=== PATIENT | male | born 1990 | race Hispanic/Latino ===

== ENCOUNTER 2018-04-28 22:30 | Emergency (ER) | payer SELFPAY ==
[2018-04-28] MEDS ORDERED: IPRATROPIUM BROM 0.5MG/2.5ML ONE (23:04)
[2018-04-28] MEDS ORDERED: LEVALBUTEROL 1.25 MG/3 ML NEB ONE (23:04)
[2018-04-28] MEDS ORDERED: ACETAMINOPHEN 500 MG TAB ONE (23:05)
[2018-04-28] MEDS ORDERED: NA CHLORIDE 0.9% 1,000 ML ONE (23:05)
[2018-04-28] MEDS ORDERED: AZITHROMYCIN 500 MG/250 ML BAG ONE (23:06)
[2018-04-28] MEDS ORDERED: CEFTRIAXONE/SWI 1gm 1 GM/10 ML SYR ONE (23:06)
[2018-04-29 00:04] LABS: Absolute Lymphocytes (CBC) 1.6 K/uL (0.7-4.9); Absolute Monocytes 0.8 K/uL (0.1-1.3); Absolute Neutrophil 8.7 K/uL (1.8-8.0); Basophils % 0.3 % (0-1.3); Eosinophils % 0.6 % (0-4.4); Hematocrit 45.6 % (39.6-49.0); MCH 29.9 pg (27.0-35.0); MCV 86.2 fL (80-100); MPV 7.9 fL (7.6-11.3); Monocytes % 6.8 % (3.3-12.3); RBC Red Blood Cell Count 5.29 M/uL (4.33-5.43)
[2018-04-29] MEDS ORDERED: IBUPROFEN 400 MG TAB ONE (00:09)
[2018-04-29 00:24] LABS: ALT/SGPT 81 U/L (12-78); AST/SGOT 32 U/L (15-37); Albumin 3.7 g/dL (3.4-5.0); Alkaline Phosphatase 113 U/L (45-117); BUN Blood Urea Nitrogen 13 mg/dL (7-18); Bicarbonate 25 mmol/L (21-32); Bilirubin Direct 0.2 mg/dL (0-0.2); Bilirubin Total 0.6 mg/dL (0.2-1.0); Glucose Level 124 mg/dL (74-106); Magnesium 1.7 mg/dL (1.8-2.4); NT PRO-BNP 6 pg/mL (<125); Potassium 3.8 mmol/L (3.5-5.1); Sodium Level 138 mmol/L (136-145); Troponin (Emerg Dept Use Only) < 0.02 ng/mL (0.0-0.045)
--- NOTE | 2018-04-29 00:38 | ER ---
Nurse's Notes [facility] Name: Connor Silveira Age: 27 yrs Sex: Male : 1990 Arrival Date: 04/28/2018 Time: 22:35 Bed 27 Private MD: Diagnosis: Fever, unspecified;Acute upper respiratory infection, unspecified;Cough;Pneumonia due to other specified bacteria Presentation: 04/28 22:35 Presenting complaint: Patient states: that since yesterday he has been having cough, fc congestion with white sputum, fever and headache. Denies any nausea, vomiting, ear pain or sore throat. Transition of care: patient was not received from another setting of care. Onset of symptoms was April 27, 2018. Risk Assessment: Do you want to hurt yourself or someone else? Patient reports no desire to harm self or others. Initial Sepsis Screen: Does the patient meet any 2 criteria? RR > 20 per min. HR > 90 bpm. Yes Does the patient have a suspected source of infection? Yes: Productive cough/pneumonia. Care prior to arrival: Medication(s) given: Motrin, last at 1300 along with Nyquil. 22:35 Method Of Arrival: Ambulatory 22:35 Acuity: TOM 3 Triage Assessment: 22:35 General: Appears uncomfortable, obese, Behavior is calm, cooperative, appropriate for age. Pain: Complains of pain in head Pain currently is 10 out of 10 on a pain scale. Quality of pain is described as aching, Pain began 1 day ago. Is intermittent. EENT: Nares with drainage noted Reports nasal congestion nasal discharge white sputum. Neuro: Level of Consciousness is awake, alert, obeys commands, Oriented to person, place, time, situation, Appropriate for age. Cardiovascular: No deficits noted. Respiratory: Reports cough that is productive, hacking, persistent Airway is patent Respiratory effort is even, Respiratory pattern is regular, symmetrical, Sputum is thick, white Breath sounds are clear bilaterally. Onset: The symptoms/episode began/occurred gradually, the patient has mild shortness of breath. GI: No deficits noted. : No deficits noted. Derm: Skin is pink, warm \T\ dry. Musculoskeletal: Circulation, motion, and sensation intact. Capillary refill < 3 seconds, Range of motion: intact in all extremities. Historical: - Allergies: 10/12 02:17 No Known Allergies; fc - Home Meds: 02:17 None [Active]; fc - PMHx: 02:17 None; fc - PSHx: 04/28 22:35 None; fc - Immunization history:: Last tetanus immunization: unknown. - Social history:: Smoking status: Patient/guardian denies using tobacco. - Ebola Screening: : Patient negative for fever greater than or equal to 101.5 degrees Fahrenheit, and additional compatible Ebola Virus Disease symptoms Patient denies exposure to infectious person Patient denies travel to an Ebola-affected area in the 21 days before illness onset. Screenin:51 Abuse screen: Denies threats or abuse. Nutritional screening: No deficits noted. fc Tuberculosis screening: No symptoms or risk factors identified. Fall Risk None identified. Assessment: 22:50 Reassessment: see triage assessment. Dr Baltazar in to see and examine pt. 23:55 Reassessment: No changes from previously documented assessment. Patient and/or family fc updated on plan of care and expected duration. Pain level reassessed. Patient is alert, oriented x 3, equal unlabored respirations, skin warm/dry/pink. reassessed vitals and pts temp is now 102.3. Discussed with Dr Baltazar and pt to get Motrin. 04/29 00:44 Reassessment: No changes from previously documented assessment. Patient and/or family fc updated on plan of care and expected duration. Pain level reassessed. Patient is alert, oriented x 3, equal unlabored respirations, skin warm/dry/pink. After review test results doctor has added additional gram of Rocephin and some mag ivpb. 00:45 Cardiovascular: Rhythm is sinus tachycardia. 01:00 Reassessment: spoke with significant other at bedside at length about upper resp fc infections, pneumonia and viruses. Explained that the dr thought pt had the starting of pneumonia. That he needed to rest for a few days and make sure he takes Tylenol and Motrin alternating every 3-4 hrs around the clock. She states that she understands. 01:43 Reassessment: No changes from previously documented assessment. Patient and/or family fc updated on plan of care and expected duration. Pain level reassessed. Patient is alert, oriented x 3, equal unlabored respirations, skin warm/dry/pink. Pt is just awaiting completion of his mag ivbg. 02:15 Reassessment: No changes from previously documented assessment. Patient and/or family fc updated on plan of care and expected duration. Pain level reassessed. Patient is alert, oriented x 3, equal unlabored respirations, skin warm/dry/pink. Vital Signs: 04/28 22:35 BP 119 / 70; Pulse 126; Resp 22; Temp 100.6(O); Pulse Ox 96% on R/A; Weight 90.72 kg fc (R); Height 5 ft. 8 in. (175 cm) (R); Pain 10/10; 04/29 00:00 BP 114 / 73; Pulse 127; Resp 24; Temp 102.3(O); Pulse Ox 96% on R/A; fc 00:30 BP 113 / 68; Pulse 113; Resp 22; Pulse Ox 97% on R/A; fc 01:02 BP 112 / 56; Pulse 110; Resp 22; Temp 99.8(O); Pulse Ox 97% on R/A; Pain 8/10; fc 01:30 BP 126 / 64; Pulse 103; Resp 22; Pulse Ox 96% on R/A; Pain 6/10; fc 02:00 BP 120 / 64; Pulse 86; Resp 20; Pulse Ox 97% on R/A; Pain 5/10; fc 02:34 BP 110 / 50; Pulse 86; Resp 30; Temp 98.3(O); Pulse Ox 97% on R/A; Pain 4/10; fc 04/28 22:35 Body Mass Index 29.62 (90.72 kg, 175 cm) fc ED Course: 04/28 22:35 Patient arrived in ED. es 22:35 Arm band placed on Patient placed in an exam room, on a stretcher. fc 22:40 Bladimir Baltazar MD is Attending Physician. annika 22:47 Triage completed. fc 22:51 Patient has correct armband on for positive identification. Bed in low position. Call light in reach. Pulse ox on. NIBP on. 22:51 No provider procedures requiring assistance completed. fc 23:20 Missed attempt(s): 20 gauge in right antecubital area. fc 23:23 Patient moved to radiology via wheelchair. ag1 23:32 X-ray completed. Patient tolerated procedure well. ag1 23:33 Chest Pa And Lat (2 Views) XRAY In Process Unspecified. EDMS 23:50 Initial lab(s) drawn, by ED staff, sent to lab. Inserted saline lock: 20 gauge in left fc antecubital area, using aseptic technique. ,using aseptic technique. per Juju Richardson RN. Blood collected. 04/29 00:38 Don Camarena MD is Referral Physician. annika 02:34 IV discontinued, intact, bleeding controlled, No redness/swelling at site. Pressure fc dressing applied. Administered Medications: 04/28 23:05 Drug: Tylenol 1000 mg Route: PO; 04/29 00:08 Follow up: Response: No adverse reaction; Temperature is increased 04/28 23:05 Drug: Xopenex 1.25 mg Route: Inhalation; 04/29 00:07 Follow up: Response: No adverse reaction; Marked relief of symptoms 04/28 23:05 Drug: AtroVENT Aerosol 0.5 mg Route: Inhalation; 04/29 00:07 Follow up: Response: No adverse reaction; Marked relief of symptoms 04/28 23:50 Drug: NS 0.9% 1000 ml Route: IV; Rate: 1 bolus; Site: left antecubital; 04/29 00:54 Follow up: Response: No adverse reaction; No change in condition; IV Status: Completed fc infusion; IV Intake: 1000ml 04/28 23:50 Drug: Rocephin - (cefTRIAXone) 1 grams Route: IVPB; Infused Over: 30 mins; Site: left fc antecubital; 04/29 00:09 Follow up: Response: No adverse reaction; No change in condition; IV Status: Completed fc infusion; IV Intake: 10ml 04/28 23:56 Drug: Zithromax 500 mg Route: IVPB; Infused Over: 1 hrs; Site: left antecubital; 04/29 01:01 Follow up: Response: No adverse reaction; No change in condition; IV Status: Completed fc infusion; IV Intake: 250ml 00:08 Drug: Motrin 800 mg Route: PO; 01:01 Follow up: Response: No adverse reaction; Temperature is decreased 00:53 Drug: NS 0.9% 1000 ml Route: IV; Rate: 1 bolus; Site: left antecubital; 01:53 Follow up: Response: No adverse reaction; No change in condition; IV Status: Completed fc infusion; IV Intake: 1000ml 00:53 Drug: Rocephin - (cefTRIAXone) 1 grams Route: IVPB; Infused Over: 30 mins; Site: left antecubital; 00:56 Follow up: Response: No adverse reaction; No change in condition; IV Status: Completed fc infusion; IV Intake: 10ml 01:00 Drug: Magnesium Sulfate 1 grams Route: IVPB; Infused Over: 1 hrs; Site: left antecubital; 01:53 Follow up: Response: No adverse reaction; No change in condition; IV Status: Completed fc infusion; IV Intake: 50ml Intake: 00:09 IV: 10ml; Total: 10ml. 00:54 IV: 1000ml; Total: 1010ml. 00:56 IV: 10ml; Total: 1020ml. 01:01 IV: 250ml; Total: 1270ml. 01:53 IV: 1000ml; Total: 2270ml. 01:53 IV: 50ml; Total: 2320ml. Outcome: 00:37 Discharge ordered by . annika 02:33 Discharged to home ambulatory, with family. 02:33 Condition: good 02:33 Discharge instructions given to patient, family, Instructed on discharge instructions, follow up and referral plans. no drinking with medication, no driving heavy equipment, medication usage, Demonstrated understanding of instructions, follow-up care, medications, Prescriptions given X 4. 02:37 Patient left the ED. Signatures: Dispatcher [employer] EDMS Bladimir Baltazar MD MD cha Salyer, Ann Palm RN RN Yesi Laughlin ag1 Corrections: (The following items were deleted from the chart) 00:10 00:09 BP 114 / 73; Pulse 127bpm; Resp 24bpm; Pulse Ox 96% RA; Temp 102.3F Oral; fc 02:14 02:13 Transferred by ground EMS to [facility], Transfer form completed. X-rays sent w/ patient. Note: report given to Minna GUEVARA in the ER : 02:13 [facility]: [facility] 02:13 Discharge instructions given to patient, family, Instructed on the need for fc transfer, Demonstrated understanding of instructions, 02:15 02:12 BP 106 / 59; Pulse 56bpm; Resp 20bpm; Pulse Ox 100% RA; Temp 98.0F Oral; Pain fc 0/10; fc 02: 02:12 Reassessment: No changes from previously documented assessment. Patient and/or fc family updated on plan of care and expected duration. Pain level reassessed. Patient is alert, oriented x 3, equal unlabored respirations, skin warm/dry/pink. Awaiting ambulance to transport him to [facility] 02:14 Patient transferred, IV remains in place. fc
--- NOTE | 2018-04-29 00:38 | EDPHYS ---
Physician Documentation [facility] Name: Connor Silveira Age: 27 yrs Sex: Male : 1990 Arrival Date: 04/28/2018 Time: 22:35 Bed 27 Private MD: ED Physician Bladimir Baltazar HPI: 04/28 22:52 This 27 yrs old Male presents to ER via Ambulatory with complaints of Fever, annika Breathing Difficulty. 22:52 The patient reports fever, that was measured at 102 degrees Fahrenheit. Onset: The annika symptoms/episode began/occurred 2 day(s) ago. Modifying factors: there are no obvious modifying factors. Associated signs and symptoms: Pertinent positives: chills, cough. Severity of symptoms: At their worst the symptoms were mild moderate in the emergency department the symptoms are unchanged. Unable to obtain HPI due to patient's speech is incomprehensible. The patient has not experienced similar symptoms in the past. Historical: - Allergies: 04/29 02:17 No Known Allergies; fc - Home Meds: 02:17 None [Active]; fc - PMHx: 02:17 None; fc - PSHx: 04/28 22:35 None; fc - Immunization history:: Last tetanus immunization: unknown. - Social history:: Smoking status: Patient/guardian denies using tobacco. - Ebola Screening: : Patient negative for fever greater than or equal to 101.5 degrees Fahrenheit, and additional compatible Ebola Virus Disease symptoms Patient denies exposure to infectious person Patient denies travel to an Ebola-affected area in the 21 days before illness onset. ROS: 22:53 Constitutional: Negative for fever, chills, and weight loss, Eyes: Negative for injury, annika pain, redness, and discharge, ENT: Negative for injury, pain, and discharge, Neck: Negative for injury, pain, and swelling, Cardiovascular: Negative for chest pain, palpitations, and edema, Abdomen/GI: Negative for abdominal pain, nausea, vomiting, diarrhea, and constipation, Back: Negative for injury and pain, : Negative for injury, bleeding, discharge, and swelling, MS/Extremity: Negative for injury and deformity, Skin: Negative for injury, rash, and discoloration, Neuro: Negative for headache, weakness, numbness, tingling, and seizure, Psych: Negative for depression, anxiety, suicide ideation, homicidal ideation, and hallucinations, Allergy/Immunology: Negative for hives, rash, and allergies, Endocrine: Negative for neck swelling, polydipsia, polyuria, polyphagia, and marked weight changes, Hematologic/Lymphatic: Negative for swollen nodes, abnormal bleeding, and unusual bruising. 22:53 Respiratory: Positive for cough, with no reported sputum. Exam: 22:53 Constitutional: This is a well developed, well nourished patient who is awake, alert, annika and in no acute distress. Head/Face: Normocephalic, atraumatic. Eyes: Pupils equal round and reactive to light, extra-ocular motions intact. Lids and lashes normal. Conjunctiva and sclera are non-icteric and not injected. Cornea within normal limits. Periorbital areas with no swelling, redness, or edema. ENT: Nares patent. No nasal discharge, no septal abnormalities noted. Tympanic membranes are normal and external auditory canals are clear. Oropharynx with no redness, swelling, or masses, exudates, or evidence of obstruction, uvula midline. Mucous membranes moist. Neck: Trachea midline, no thyromegaly or masses palpated, and no cervical lymphadenopathy. Supple, full range of motion without nuchal rigidity, or vertebral point tenderness. No Meningismus. Chest/axilla: Normal chest wall appearance and motion. Nontender with no deformity. No lesions are appreciated. Respiratory: Lungs have equal breath sounds bilaterally, clear to auscultation and percussion. No rales, rhonchi or wheezes noted. No increased work of breathing, no retractions or nasal flaring. Abdomen/GI: Soft, non-tender, with normal bowel sounds. No distension or tympany. No guarding or rebound. No evidence of tenderness throughout. Back: No spinal tenderness. No costovertebral tenderness. Full range of motion. Male : Normal genitalia with no discharge or lesions. Skin: Warm, dry with normal turgor. Normal color with no rashes, no lesions, and no evidence of cellulitis. MS/ Extremity: Pulses equal, no cyanosis. Neurovascular intact. Full, normal range of motion. Neuro: Awake and alert, GCS 15, oriented to person, place, time, and situation. Cranial nerves II-XII grossly intact. Motor strength 5/5 in all extremities. Sensory grossly intact. Cerebellar exam normal. Normal gait. Psych: Awake, alert, with orientation to person, place and time. Behavior, mood, and affect are within normal limits. 22:53 Cardiovascular: Rate: tachycardic, Rhythm: regular, Heart sounds: normal, JVD: is not appreciated. 04/29 00:37 Musculoskeletal/extremity: DVT Exam: No signs of deep vein thrombosis. no pain, no annika swelling, no tenderness, negative Homans' sign noted on exam, no appreciated bluish discoloration, no erythema, no increased warmth. Vital Signs: 04/28 22:35 BP 119 / 70; Pulse 126; Resp 22; Temp 100.6(O); Pulse Ox 96% on R/A; Weight 90.72 kg fc (R); Height 5 ft. 8 in. (175 cm) (R); Pain 10/10; 04/29 00:00 BP 114 / 73; Pulse 127; Resp 24; Temp 102.3(O); Pulse Ox 96% on R/A; fc 00:30 BP 113 / 68; Pulse 113; Resp 22; Pulse Ox 97% on R/A; fc 01:02 BP 112 / 56; Pulse 110; Resp 22; Temp 99.8(O); Pulse Ox 97% on R/A; Pain 8/10; fc 01:30 BP 126 / 64; Pulse 103; Resp 22; Pulse Ox 96% on R/A; Pain 6/10; fc 02:00 BP 120 / 64; Pulse 86; Resp 20; Pulse Ox 97% on R/A; Pain 5/10; fc 02:34 BP 110 / 50; Pulse 86; Resp 30; Temp 98.3(O); Pulse Ox 97% on R/A; Pain 4/10; fc 04/28 22:35 Body Mass Index 29.62 (90.72 kg, 175 cm) fc MDM: 04/28 22:40 Patient medically screened. [facility] 22:55 Data reviewed: vital signs, nurses notes, lab test result(s), EKG, radiologic studies, [facility] plain films. 04/28 22:51 Order name: Basic Metabolic Panel; Complete Time: 00:35 [facility] 04/28 22:51 Order name: CBC with Diff; Complete Time: 00:35 [facility] 04/28 22:51 Order name: LFT's; Complete Time: 00:35 [facility] 04/28 22:51 Order name: Magnesium; Complete Time: 00:35 [facility] 04/28 22:51 Order name: NT PRO-BNP; Complete Time: 00:35 [facility] 04/28 22:51 Order name: Troponin (emerg Dept Use Only); Complete Time: 00:35 [facility] 04/28 22:51 Order name: Chest Pa And Lat (2 Views) XRAY [facility] 04/28 22:51 Order name: Flu; Complete Time: 00:35 [facility] 04/28 22:51 Order name: EKG; Complete Time: 22:52 [facility] 04/28 22:51 Order name: Cardiac monitoring; Complete Time: 23:23 [facility] 04/28 22:51 Order name: EKG - Nurse/Tech; Complete Time: 23:23 [facility] 04/28 22:51 Order name: IV Saline Lock; Complete Time: 00:11 [facility] 04/28 22:51 Order name: Labs collected and sent; Complete Time: 00:11 [facility] 04/28 22:51 Order name: O2 Per Protocol; Complete Time: 23:06 [facility] 04/28 22:51 Order name: O2 Sat Monitoring; Complete Time: 23:06 [facility] 04/29 00:36 Order name: Vital Signs; Complete Time: 00:54 [facility] Administered Medications: 23:05 Drug: Tylenol 1000 mg Route: PO; 04/29 00:08 Follow up: Response: No adverse reaction; Temperature is increased 04/28 23:05 Drug: Xopenex 1.25 mg Route: Inhalation; 04/29 00:07 Follow up: Response: No adverse reaction; Marked relief of symptoms 04/28 23:05 Drug: AtroVENT Aerosol 0.5 mg Route: Inhalation; 04/29 00:07 Follow up: Response: No adverse reaction; Marked relief of symptoms 04/28 23:50 Drug: NS 0.9% 1000 ml Route: IV; Rate: 1 bolus; Site: left antecubital; 04/29 00:54 Follow up: Response: No adverse reaction; No change in condition; IV Status: Completed fc infusion; IV Intake: 1000ml 04/28 23:50 Drug: Rocephin - (cefTRIAXone) 1 grams Route: IVPB; Infused Over: 30 mins; Site: left fc antecubital; 04/29 00:09 Follow up: Response: No adverse reaction; No change in condition; IV Status: Completed fc infusion; IV Intake: 10ml 04/28 23:56 Drug: Zithromax 500 mg Route: IVPB; Infused Over: 1 hrs; Site: left antecubital; 04/29 01:01 Follow up: Response: No adverse reaction; No change in condition; IV Status: Completed fc infusion; IV Intake: 250ml 00:08 Drug: Motrin 800 mg Route: PO; 01:01 Follow up: Response: No adverse reaction; Temperature is decreased 00:53 Drug: NS 0.9% 1000 ml Route: IV; Rate: 1 bolus; Site: left antecubital; 01:53 Follow up: Response: No adverse reaction; No change in condition; IV Status: Completed fc infusion; IV Intake: 1000ml 00:53 Drug: Rocephin - (cefTRIAXone) 1 grams Route: IVPB; Infused Over: 30 mins; Site: left antecubital; 00:56 Follow up: Response: No adverse reaction; No change in condition; IV Status: Completed fc infusion; IV Intake: 10ml 01:00 Drug: Magnesium Sulfate 1 grams Route: IVPB; Infused Over: 1 hrs; Site: left antecubital; 01:53 Follow up: Response: No adverse reaction; No change in condition; IV Status: Completed fc infusion; IV Intake: 50ml Disposition: 04/29/18 00:37 Discharged to Home. Impression: Fever, unspecified, Acute upper respiratory infection, unspecified, Cough, Pneumonia due to other specified bacteria. - Condition is Stable. - Discharge Instructions: Upper Respiratory Infection, Adult, Cool Mist Vaporizer, Cough, Adult, [id number], Cough, Adult. - Prescriptions for Cheratussin AC 10- 100 mg/5 mL Oral liquid - take 10 milliliter by ORAL route every 4 hours; 150 milliliter. Medrol (Bobby) 4 mg Oral Tablets, Dose Pack - take 1 tablet by ORAL route as directed - follow package instructions; 1 packet. Albuterol Sulfate 90 mcg/actuation - inhale 1-2 puff by INHALATION route every 4-6 hours; 1 Inhaler. Zithromax 500 mg Oral Tablet - take 1 tablet by ORAL route once daily for 5 days; 5 tablet. - Medication Reconciliation Form, Thank You Letter, Antibiotic Education, Prescription Opioid Use form. - Follow up: Private Physician; When: 2 - 3 days; Reason: Recheck today's complaints, Continuance of care, Re-evaluation by your physician. Follow up: Don Camarena MD; When: 2 - 3 days; Reason: Recheck today's complaints, Re-evaluation by your physician. - Problem is new. - Symptoms have improved. Signatures: Dispatcher [employer] Bladimir Goodson MD MD cha Chretien, Felicia, RN RN fc Corrections: (The following items were deleted from the chart) 00:38 00:37 04/29/2018 00:37 Discharged to Home. Impression: Fever, unspecified; Acute upper annika respiratory infection, unspecified; Cough; Pneumonia due to other specified bacteria. Condition is Stable. Discharge Instructions: Upper Respiratory Infection, Adult, Cool Mist Vaporizer, Cough, Adult, [id number], Cough, Adult. Prescriptions for Cheratussin AC 10-100 mg/5 mL Oral liquid - take 10 milliliter by ORAL route every 4 hours; 150 milliliter, Medrol (Bobby) 4 mg Oral Tablets, Dose Pack - take 1 tablet by ORAL route as directed - follow package instructions; 1 packet, Albuterol Sulfate 90 mcg/actuation - inhale 1-2 puff by INHALATION route every 4-6 hours; 1 Inhaler, Zithromax 500 mg Oral Tablet - take 1 tablet by ORAL route once daily for 5 days; 5 tablet. and Forms are Medication Reconciliation Form, Thank You Letter, Antibiotic Education, Prescription Opioid Use. Follow up: Private Physician; When: 2 - 3 days; Reason: Recheck today's complaints, Continuance of care, Re-evaluation by your physician. Problem is new. Symptoms have improved. [facility] 02:37 00:38 04/29/2018 00:37 Discharged to Home. Impression: Fever, unspecified; Acute upper fc respiratory infection, unspecified; Cough; Pneumonia due to other specified bacteria. Condition is Stable. Discharge Instructions: Upper Respiratory Infection, Adult, Cool Mist Vaporizer, Cough, Adult, [id number], Cough, Adult. Prescriptions for Cheratussin AC 10-100 mg/5 mL Oral liquid - take 10 milliliter by ORAL route every 4 hours; 150 milliliter, Medrol (Bobby) 4 mg Oral Tablets, Dose Pack - take 1 tablet by ORAL route as directed - follow package instructions; 1 packet, Albuterol Sulfate 90 mcg/actuation - inhale 1-2 puff by INHALATION route every 4-6 hours; 1 Inhaler, Zithromax 500 mg Oral Tablet - take 1 tablet by ORAL route once daily for 5 days; 5 tablet. and Forms are Medication Reconciliation Form, Thank You Letter, Antibiotic Education, Prescription Opioid Use. Follow up: Private Physician; When: 2 - 3 days; Reason: Recheck today's complaints, Continuance of care, Re-evaluation by your physician. Follow up: Don Camarena; When: 2 - 3 days; Reason: Recheck today's complaints, Re-evaluation by your physician. Problem is new. Symptoms have improved. annika
[2018-04-29] MEDS ORDERED: NA CHLORIDE 0.9% 1,000 ML ONE (00:48)
[2018-04-29] MEDS ORDERED: CEFTRIAXONE/SWI 1gm 1 GM/10 ML SYR ONE (00:50)
[2018-04-29] MEDS ORDERED: MAGNESIUM SULFATE 1 gm IVPB 1 GM/100 ML BAG IV ONE (00:50)
--- NOTE | 2018-04-29 07:58 | RAD REPORT ---
EXAM DESCRIPTION: RAD - Chest Pa And Lat (2 Views) - 04/28/2018 11:39 pm CLINICAL HISTORY: Cough and congestion, fever COMPARISON: None. TECHNIQUE: PA and lateral views of the chest were obtained. FINDINGS: The lungs are underinflated. There is a mild prominence of the interstitial markings belie crystal be baseline. Patchy left base opacification is present suspicious for developing posterior left l juliet base pneumonia. Asymmetric or prominent atelectasis would be possible as well. Correlation is nee ded with clinical presentation. Significant failure or volume overload are not suspected. Trachea is midline. Heart size is normal and central vasculature is within normal limits. No pleural effusion or pneumothorax seen. No acute bony finding noted. No aortic abnormality. IMPRESSION: Early posterior left lung base pneumonia versus asymmetric atelectasis pattern.
--- NOTE | 2018-04-29 08:12 | EKG ---
Test Date: 2018-04-28 Test Time: 23:10:38 Senior Test Engineer: MARIE MEASUREMENT RESULTS: Intervals: Rate: 125 AR: 140 QRSD: 88 QT: 288 QTc: 415 Eads: P: 38 AR: 140 QRS: -43 T: 40 INTERPRETIVE STATEMENTS: Sinus tachycardia Left axis deviation Pulmonary disease pattern Abnormal ECG No previous ECG available for comparison Electronically Signed On 04-29-18 08:11:38 CDT by Vasquez Sandhu
== END 2018-04-29 02:37 | disposition home or self-care (01) ==
LOC: ER 22:30
DX: J15.8 Pneumonia due to other specified bacteria (principal); J06.9 Acute upper respiratory infection, unspecified; R05 Cough
CPT/HCPCS: 36415; 71046; 80048; 80076; 83735; 83880; 84484; 85025; 87804; 93005; 96365; 96367; 99285; J0456; J0696; J3475; J7030